=== PATIENT | female | born 1980 | race Two or more races ===

== ENCOUNTER → 2018-10-01 | Outpatient (CLI) | payer OTHER ==
[~2018-10-01] MED LIST: CALC-31 PO; CHOL10003 PO; FOLI1TAB16 PO; IBUP-1027 PO; OXYC1TAB19 PO; PNV#1COM7 PO
[2018-10-01 14:36] LABS: BASO # 0.1 x10^3/uL (0.0-0.2); BASO % 1 % (0-3); EOS # 0.3 x10^3/uL (0.0-0.7); EOS % 3 % (0-3); HEMOGLOBIN 13.3 g/dL (12.0-15.5); LYMPH # 3.6 x10^3/uL (1.0-4.8); LYMPH % 31 % (24-48); MEAN CORPUSCULAR HEMOGLOBIN 29 pg (25-35); MEAN CORPUSCULAR HGB CONC 34 g/dL (31-37); MEAN CORPUSCULAR VOLUME 84 fL (79-100); MONO # 0.6 x10^3/uL (0.0-1.1); MONO % 6 % (0-9); NEUT # 7.1 x10^3uL (1.8-7.7); NEUT % 60 % (31-73); PLATELET COUNT 347 x10^3/uL (140-400); RED BLOOD COUNT 4.65 x10^6/uL (3.50-5.40); RED CELL DISTRIBUTION WIDTH 13.2 % (11.5-14.5); WHITE BLOOD COUNT 11.7 x10^3/uL (4.0-11.0)
[2018-10-01 15:05] LABS: CALCIUM 9.4 mg/dL (8.5-10.1); CREATININE 0.9 mg/dL (0.6-1.0); GFR 70.1; POTASSIUM 3.7 mmol/L (3.5-5.1); TOTAL BILIRUBIN 0.4 mg/dL (0.2-1.0)
--- NOTE | 2018-10-02 17:16 | NUR ---
FAXED PRE - OP LAB REPORTS TO 'S OFFICE FOR REVIEW AT 1053 AND RECEIVED TRANSMITTAL CONFIRMATION.
== END | disposition home or self-care (01) ==
LOC: SURGPAT 13:49
PROVIDERS: ATTEND Surgery
DX: Z01.818 Encounter for other preprocedural examination (principal); K80.20 Calculus of gallbladder without cholecystitis without obstruction
CPT/HCPCS: 36415; 80048; 82040; 82247; 85025

== ENCOUNTER 2018-10-06 06:19 | Day surgery (SDC) | payer OTHER ==
[~2018-10-06] VITALS: Ht 165.1 cm; Wt 129.3 kg
[~2018-10-06 06:19] MED LIST changes: -OXYC1TAB19 PO; +ceFAZolin SODIUM 3 GM in IV DEXTROSE 5% 100ML 100 ML IV PRN
[2018-10-06] MEDS ORDERED: ONDANSETRON PF 4 MG/2 ML VIAL. ONE (06:35)
[2018-10-06] MEDS ORDERED: PROPOFOL 20 ML IV ONE (06:35)
[2018-10-06] MEDS ORDERED: ROCURONIUM 50 MG/5 ML VIAL. ONE ×2 (06:36→08:55)
[2018-10-06] MEDS ORDERED: fentaNYL PF VIAL 100 MCG/2 ML VIAL ONE (06:36)
[2018-10-06] MEDS ORDERED: PROCHLORPERAZINE 10 MG/2 ML VIAL. IV PRN (07:00)
[2018-10-06] MEDS ORDERED: fentaNYL PF VIAL 100 MCG/2 ML VIAL IV PRN (07:00)
[2018-10-06] MEDS ORDERED: ONDANSETRON PF 4 MG/2 ML VIAL. IV PRN (07:00)
[2018-10-06] MEDS ORDERED: MORPHINE SULFATE 2 MG/ML VIAL. IV PRN (07:00)
[2018-10-06] MEDS ORDERED: HYDROmorphone 2 MG/ML VIAL IV PRN (07:00)
[2018-10-06] MEDS ORDERED: LIDOCAINE 1% PF 2 ML VIAL. ID PRN (07:00)
[2018-10-06] MEDS ORDERED: IOHEXOL 300 MG/ML 50 ML VIAL. ONE (07:05)
[2018-10-06] MEDS ORDERED: SURGICEL HEMOSTAT 4X8 EACH. ONE ×2 (07:05→08:13)
[2018-10-06] MEDS ORDERED: BUPIVAC MPF-EPI 0.5%-1:200000 30 ML VIAL. ONE (07:05)
[2018-10-06] MEDS ORDERED: DEXAMETHASONE SOD PHOS 4 MG/ML VIAL ONE (07:17)
[2018-10-06] MEDS: IV RINGERS,LACTATED 1000ML 1,000 ML IV SCH ×2 (07:30→10:57)
[2018-10-06 07:58] LABS: U PREG PATIENT NEGATIVE (NEG)
--- NOTE | 2018-10-06 09:29 | RAD ---
Intraoperative cholangiogram, 10/06/2018: HISTORY: Cholecystectomy 2 spot films from surgery are presented for review. Contrast has been injected into the cystic duct remnant. 0.13 minutes of fluoroscopy time was utilized. There is good flow contrast into the duodenum at the ampulla. The common bile duct is of normal caliber. No filling defect is seen in the common duct to suggest a retained stone. The intrahepatic bile ducts are incompletely opacified. No contrast extravasation is seen. IMPRESSION: No significant abnormality is detected. Electronically signed by: Colton Florez MD (10/06/2018 9:26 AM) [facility]
--- NOTE | 2018-10-06 09:54 | PDOC ---
BRIEF OPERATIVE NOTE Date: Oct 06, 2018 Pre-Op Diagnosis symptomatic cholelithiasis Post-Op Diagnosis same with acute cholecystitis Procedure Performed l/s cholecystectomy with cholangiograms Surgeon Mic Irrigation Flume Layer Nahomi GONZALEZ Anesthesiologist Dr Baker Anesthesia Type: General Blood Loss 25cc IV Fluid 600cc Specimens Obtained bile for culture GB Findings acute cholecystitis with stone impacted in the neck of the gall bladder normal grams Complications none RICHARD ROSAS MD Oct 06, 2018 09:54
[2018-10-06] MEDS: fentaNYL PF VIAL 100 MCG/2 ML VIAL IV PRN ×4 (10:11→10:44)
--- NOTE | 2018-10-06 10:15 | DISCH ---
DISCHARGE INSTRUCTIONS Condition on Discharge Condition on Discharge: Stable Activity After Discharge Activity Instructions for Disc: Activity as tolerated, Avoid exertion Lifting Instructions after Dis: No heavy lifting Driving Instructions after Dis: Do not drive (3-4 days) Diet after Discharge Diet after Discharge: Regular Wound Incision Care Wound/Incision Care: Ice to area for comfort Other wound/incision instructi: august shower Saturday Follow-Up Follow up with: Mic end of the week RICHARD ROSAS MD Oct 06, 2018 10:15
--- NOTE | 2018-10-06 10:28 | OP ---
DATE OF SURGERY: 10/06/2018 PREOPERATIVE DIAGNOSIS: Symptomatic cholelithiasis. POSTOPERATIVE DIAGNOSES: Symptomatic cholelithiasis with acute cholecystitis. PROCEDURE: Laparoscopic cholecystectomy with cholangiogram. SURGEON: Rey Rosas MD SHEETMETAL PATTERNMAKER: CARLOS Black. ANESTHESIA: General endotracheal. ESTIMATED BLOOD LOSS: 25. INTRAVENOUS FLUIDS: 600. INDICATIONS: The patient is a 38-year-old female with symptomatic gallstones, brought for cholecystectomy. OPERATIVE FINDINGS: The liver was smooth and sharp. The gallbladder was edematous with a stone impacted in the neck, resulting in a hydrops gallbladder. A moderate amount of turbid fluid was present in the right upper quadrant. Visual inspection of the remainder of the abdomen failed to reveal obvious abnormalities. DESCRIPTION OF PROCEDURE: The patient brought to the operating suite, given a general endotracheal anesthetic. Abdomen prepped and draped in usual sterile fashion. A supraumbilical incision was infiltrated with local anesthetic, incised and a 5 x 150 mm Visiport was safely placed into the abdominal cavity, avoiding injury to abdominal contents. Pneumoperitoneum was established. Camera inserted. Inspection carried out with results as noted above. With the table in reverse Trendelenburg rolled to the left, the epigastric, midclavicular and lateral ports were placed under direct vision. The gallbladder was distended and edematous and as such required aspiration of approximately 40 mL of turbid "white bile." This allowed grasping of the fundus and retracting the gallbladder superolaterally, facilitating takedown of some omentum along the inferior surface of the gallbladder with blunt and cautery dissection, being careful to avoid injury to the adjacent bowel. The cystic duct and cystic artery were carefully exposed. The duct was clipped on the gallbladder side. Cholangiograms were made. These were normal. In light of this, the cystic duct was clipped x 3 and divided, taking care to avoid injury or compromise the common duct. Cystic artery clipped and divided and gallbladder freed from the bed with cautery dissection. Part way up the fossa, a second vessel was encountered posteriorly and controlled with clips. The gallbladder was freed from the liver bed and placed in an EndoCatch bag. Hemostasis in the fossa with cautery and a small piece of Surgicel. No evidence of bile leak was seen. A 19-Urdu round Sarthak drain was brought through the epigastric port out the lateral ports, sewn to the skin with silk stitch and left in the subhepatic space for postoperative drainage. Table returned to level. Gallbladder delivered through the epigastric incision. Incision closed with interrupted 0 Vicryl suture. Intra-abdominal pressure decreased to 6 cm of water. No bleeding seen from the epigastric closure or from the midclavicular port site or the lateral drain site. Abdomen decompressed, camera slowly removed, no bleeding seen. Skin incisions closed with subcuticular 4-0 Monocryl. Steri-Strips and sterile dressings applied. The patient awakened from her anesthetic and taken to the recovery room in satisfactory condition. REY ROSAS MD DR: ANA/horacio JOB#: [id number] / [id number]
[2018-10-06] MEDS ORDERED: oxyCODONE/APAP 7.5/325 1 TAB TABLET PO ONE (10:45)
[2018-10-06] MEDS ORDERED: OXYC1TAB19 PO (11:03)
[2018-10-06 12:25] VITALS: BP 116/74
--- NOTE | 2018-10-07 17:07 | PATHOLOGY ---
[facility] Accession Number: [id number] . 01 Material submitted: . gallbladder - GALLBLADDER . 01 Clinician provided ICD-10: . 01 Clinical history: . Symptomatic cholelithiasis . 02 Diagnosis: Gallbladder, laparoscopic cholecystectomy: - Cholelithiasis. 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 . (JPM:mm; 10/07/2018) QL/10/07/2018 . 02 Comment: There is no evidence of malignancy. . (JPM:mm; 10/07/2018) . 02 Electronically signed: . Sarthak Rai MD, Pathologist NPI- [id number] . 01 Gross description: . The specimen is received in formalin, labeled "Santamaria, Loraine, gallbladder", is intact, distended, fibrous gallbladder measuring 9.7 cm in length and 2.8 cm in maximum diameter with a partially hemorrhagic, molina-white serosa. The cystic duct is impacted by a calculus and is dilated. The gallbladder lumen contains molina-pink, viscous bile and oval irregularly surfaced yellow-green calculus measuring 3.2 x 2.2 x 2.0. The mucosa is diffusely effaced and hyperemic with no cholesterolosis. The wall is 0.2 cm in average thickness. Check Weigher tissue is submitted in A1. ([facility]; 10/06/2018) [facility] . 02 Pathologist provided ICD-10: K80.12 . 02 CPT . 674264 Specimen Comment: A courtesy copy of this report has been sent to Specimen Comment: [phone]. Specimen Comment: Report sent to Performed at: [address], [place], [place] [id number] MD Xander Laura MD Phone: [phone] Performed at: [address] [id number] MD Sarthak Rai MD Phone: [phone]
== END 2018-10-06 13:30 | disposition home or self-care (01) ==
LOC: SURG 06:19 → EDUNIT# 08:00 → SURG 13:30
PROVIDERS: ATTEND Surgery
DX: K80.12 Calculus of gallbladder with acute and chronic cholecystitis without obstruction (principal)
CPT/HCPCS: 47563; 74300; 81025; 87071; 87075; J1100; J2405; J2704; J3010; J3490; Q9967; A7015; J7030